=== PATIENT | female | born 1965 | race Caucasian/White ===

== ENCOUNTER 2019-05-26 16:23 | Observation (INO) ==
[2019-05-26] MEDS ORDERED: Gadolinium Contrast Agent (WT Based) IV PRN ×2 (22:27→23:06)
[2019-05-27 02:25] LABS: Prothrombin Time 11.6 Seconds (9.4-12.1)
[2019-05-27 02:28] LABS: Activated Partial Thrombo Time 34.8 Seconds (26.0-36.0); Hematocrit 37.8 % (35.3-44.9); Hemoglobin 12.9 g/dL (11.5-15.4); Mean Corpuscular HGB Conc 34.1 g/dL (31.6-35.5); Mean Corpuscular Hemoglobin 30.7 pg (28.0-33.3); Mean Platelet Volume 9.6 fL (9.4-12.4); Platelet Count 269 K/mcL (140-400); Red Cell Distribution Width 12.7 % (11.5-14.5); White Blood Count 6.4 K/mcL (4.3-11.1)
[2019-05-27 02:36] LABS: Alanine Aminotransferase 22 Units/L (7-52); Albumin/Globulin Ratio 1.4 (1.1-2.2); Alkaline Phosphatase 130 Units/L (34-104); Aspartate Amino Transferase 18 Units/L (13-39); BUN/Creatinine Ratio 18 (6-26); Bilirubin,Total 0.4 mg/dL (0.3-1.0); Blood Urea Nitrogen 13 mg/dL (6-20); Calcium 9.9 mg/dL (8.6-10.3); Carbon Dioxide 26 mEq/L (23-29); Chloride 103 mEq/L (98-107); Chol/HDL Ratio 3.6 (0-4.9); Cholesterol 174 mg/dL (< 200); Globulin 2.8 g/dL (2.4-3.5); Glucose 122 mg/dL (70-105); HDL Cholesterol 49 mg/dL (40-59); LDL Cholesterol,Calculated 105 mg/dL (0-99); LDL Cholesterol,Direct 105 mg/dL (75-193); Osmolality,Calculated 289 (280-300); Potassium 3.1 mEq/L (3.5-5.1); Sodium 139 mEq/L (136-145); Total Protein 6.8 g/dL (6.4-8.9); Triglycerides 99 mg/dL (< 150); eGFR For African Americans > 60 (> 60); eGFR For Non-African Americans > 60 (> 60)
[2019-05-27] MEDS ORDERED: Ibuprofen 800 MG TABLET PO ONE (05:43)
[2019-05-27] MEDS: Potassium Chloride Elixir 20 MEQ/15 ML UDC PO ONE ×2 (08:19→08:38)
[2019-05-27] MEDS ORDERED: Aspirin 325 MG TABLET PO SCH (09:00)
[2019-05-27] MEDS ORDERED: Metoprolol XL (24 HR) Succ 25 MG TAB.ER.24H PO SCH (09:00)
[2019-05-27] MEDS ORDERED: Loratadine 10 MG TABLET PO SCH (09:00)
[2019-05-27 09:59] LABS: Estimated Average Glucose 146 mg/dl
[2019-05-27 16:25] VITALS: BP 121/76
[2019-05-27] MEDS ORDERED: Gabapentin 300 MG CAPSULE PO SCH (18:00)
== END 2019-05-27 18:24 | disposition home or self-care (01) ==
LOC: 3BNU
PROVIDERS: ADMIT Internal Medicine; ATTEND Internal Medicine